=== PATIENT | female | born 1955 | race Caucasian/White ===

== ENCOUNTER → 2019-05-13 | Outpatient (CLI) | payer MEDICARE ==
--- NOTE | 2019-05-13 14:43 | RADIOLOGY REPORT (SQ) ---
EXAM DESCRIPTION: FEMUR RIGHT COMPLETED DATE/TIME: 05/13/2019 2:23 pm REASON FOR STUDY: STRESS FX OF R FEMUR (M84.351A) M84.351A STRESS FRACTURE, RIGHT FEMUR, INITIAL EN COUNTER FOR COMPARISON: None. NUMBER OF VIEWS: Two views. TECHNIQUE: Two radiographic images acquired of the right femur to include hip and knee in at least o ne projection. LIMITATIONS: None. FINDINGS: MINERALIZATION: Normal. BONES: No acute fracture. No worrisome bone lesions. SOFT TISSUES: No obvious swelling or foreign body. OTHER: No other significant finding. IMPRESSION: NEGATIVE STUDY OF THE RIGHT FEMUR. NO RADIOGRAPHIC EVIDENCE OF ACUTE INJURY. TECHNICAL DOCUMENTATION: JOB ID: [id number] [employer]- All Rights Reserved Reading location - IP/workstation name: [email or web address]
--- NOTE | 2019-05-13 14:49 | RADIOLOGY REPORT (SQ) ---
EXAM DESCRIPTION: TIBIA FIBULA RIGHT COMPLETED DATE/TIME: 05/13/2019 2:23 pm REASON FOR STUDY: STRESS FX OF R FEMUR (M84.351A), CELLULITIS R TIB/FIB M84.351A STRESS FRACTURE, R IGHT FEMUR, INITIAL ENCOUNTER FOR COMPARISON: None. NUMBER OF VIEWS: Two views. TECHNIQUE: Two radiographic images acquired of the right tibia and fibula to include the knee and an kle in at least one projection. LIMITATIONS: None. FINDINGS: MINERALIZATION: Decreased. BONES: No acute fracture or dislocation. No worrisome bone lesions. SOFT TISSUES: No obvious swelling or foreign body. OTHER: No other significant finding. IMPRESSION: NEGATIVE STUDY OF THE RIGHT TIBIA AND FIBULA. NO RADIOGRAPHIC EVIDENCE OF ACUTE INJURY. TECHNICAL DOCUMENTATION: JOB ID: [id number] [employer]- All Rights Reserved Reading location - IP/workstation name: [email or web address]
--- NOTE | 2019-05-13 14:50 | RADIOLOGY REPORT (SQ) ---
EXAM DESCRIPTION: PELVIS AP COMPLETED DATE/TIME: 05/13/2019 2:23 pm REASON FOR STUDY: STRESS FX OF R FEMUR (M84.351A) M84.351A STRESS FRACTURE, RIGHT FEMUR, INITIAL EN COUNTER FOR COMPARISON: None. NUMBER OF VIEWS: One view TECHNIQUE: AP Pelvis LIMITATIONS: None. FINDINGS: MINERALIZATION: Decreased. HIPS: No acute fracture or dislocation. No worrisome bone lesions. Minimal degenerative changes with small osteophytes. PELVIS AND SACRUM: No acute fracture or dislocation. No worrisome bone lesions. PUBIS AND ISCHIUM: No acute fracture. LOWER LUMBAR SPINE: Mild lower lumbar spondylosis and facet arthropathy. SOFT TISSUES: No findings. OTHER: No other significant finding. IMPRESSION: No acute bony abnormality of the pelvis. Mild lower lumbar facet arthropathy and spondylosis. COMMENT: Pelvic fractures are often occult on plain radiographs. If strong clinical suspicion for f racture, recommend CT or MR. TECHNICAL DOCUMENTATION: JOB ID: [id number] [employer]- All Rights Reserved Reading location - IP/workstation name: [email or web address]
--- NOTE | 2019-05-13 15:49 | RADIOLOGY REPORT (SQ) ---
EXAM DESCRIPTION: NM 3 PHASE BONE SCAN COMPLETED DATE/TIME: 05/13/2019 2:06 pm REASON FOR STUDY: STRESS FX RIGHT FEMUR, INITIAL ENCTR (M84.351A) M84.351A STRESS FRACTURE, RIGHT F EMUR, INITIAL ENCOUNTER FOR COMPARISON: Same day radiographs, correlation with outside MRI lumbar spine RADIONUCLIDE AND DOSE: 21.5 millicuries Tc99m HDP. The route of agent administration: Intravenous. ADDITIONAL DRUGS AND DOSES: None. TECHNIQUE: Following injection of the radiopharmaceutical, serial blood flow images acquired. Equil ibrium blood pool images then acquired. Routine delayed images at 3 hour acquired of the areas of cl inical concern with additional focused images as needed. AREA OF INTEREST: Right leg LIMITATIONS: None. FINDINGS: VASCULAR FLOW IMAGES: No asymmetry or focal areas of hyperemia. BLOOD POOL IMAGES: No asymmetry or focal areas of soft-tissue hyper-perfusion. BONES: Mild uptake along the right lower lumbar spine, likely degenerative. Focal area of uptake sundeep ng the distal great toe, right foot. Otherwise, normal visualization without areas of photopenia or increased bony uptake of radiopharmaceutical. KIDNEYS: Symmetric excretion without obstruction. OTHER: Enlarged liver extending to the level of the iliac crest. IMPRESSION: 1. No findings to suggest stress fracture. 2. Mild uptake at the lumbar spine, likely degenerative. Additional focal area of uptake along the right great toe, possibly posttraumatic or degenerative. Recommend correlation with patient history and physical exam. 3. Enlarged liver extending to the level of the iliac crest. COMMENT: Quality measure 147: Current bone scan is compared with any available plain radiographs, p rior bone scans, and CT/MRI. TECHNICAL DOCUMENTATION: JOB ID: [id number] [employer]- All Rights Reserved Reading location - IP/workstation name: [email or web address]
== END ==
LOC: RAD 10:35
PROVIDERS: ATTEND Family Medicine
DX: M84.351A Stress fracture, right femur, initial encounter for fracture (principal); L03.115 Cellulitis of right lower limb
CPT/HCPCS: 73552; 72170; 73590; 78315; A9561; Q9969